=== PATIENT | female | born 1980 | race Caucasian/White ===

== ENCOUNTER 2023-12-12 07:15 | Day surgery (SDC) | payer BC ==
[~2023-12-12] VITALS: Ht 157.5 cm; Wt 72.7 kg
[~2023-12-12 07:15] MED LIST: ALPRAZOLAM0.5 MG PO; BUPROPION HCL150 MG PO; CEFAZOLIN SODIUM 2 GM/20 ML SYR IV SCH; CYCLOBENZAPRINE10 MG PO; DEXAMETHASONE SOD PHOS 4 MG/ML VIAL ONE; DULOXETINE HCL60 MG PO; FAMOTIDINE 20 MG/ 2 ML VIAL ONE; FOLIC ACID1 MG PO; GABAPENTIN100 MG PO; GABAPENTIN300 MG PO; GEODON60 MG PO; IBLOOD GLUCOSE TEST STRIP 1 EA TEST VI PRN; IBUPROFEN800 MG PO; KETOROLAC TROMETHAMINE 30 MG/ML VIAL ONE; KONDREMUL2.5 ML/5 M PO; LACTATED RINGER'S 1,000 ML IV ONE; LACTATED RINGER'S 1,000 ML IV SCH; LEVOTHYROXINE100 MCG PO; LIDOCAINE HCL 1% 5 ML SDV INJ ONE; METOCLOPRAMIDE HCL 10 MG/2 ML SDV ONE; MIDAZOLAM HCL 2 MG/2 ML VIAL ONE; MOTRIN IB200 MG PO; NORCO 5-325 TA1 EACH PO; PERCOCET 5-3251 EACH PO; PRISTIQ ER25 MG PO; SENNA8.6 MG PO; SERTRALINE HCL100 MG PO; TOPIRAMATE ER50 M1 PO; TRANEXAMIC ACID 2,000 MG in SODIUM CHLORIDE 0.9% 100 ML IV SCH; VITAMIN B-12100 MCG PO; VITAMIN B-125000 MC1 PO; WELLBUTRIN SR100 MG PO; fentaNYL citrate 100 MCG/2 ML VIAL ONE; ondansetron HCL 4 MG/2 ML VIAL ONE; propofoL 200 MG/20 ML VIAL ONE
[2023-12-12 07:36] VITALS: BP 108/51
[2023-12-12] MEDS ORDERED: PROCHLORPERAZINE EDISYLATE 10 MG/2 ML VIAL IV PRN (07:45)
[2023-12-12] MEDS ORDERED: IBLOOD GLUCOSE TEST STRIP 1 EA TEST VI PRN (07:45)
[2023-12-12] MEDS ORDERED: NALOXONE HCL 0.4 MG SYR IV PRN (07:45)
[2023-12-12] MEDS ORDERED: droPERidol 5 MG/2 ML VIAL IV PRN (07:45)
[2023-12-12] MEDS ORDERED: ondansetron HCL 4 MG/2 ML VIAL IV PRN (07:45)
[2023-12-12] MEDS ORDERED: MORPHINE SULFATE 10 MG/ML VIAL IV PRN (07:45)
[2023-12-12] MEDS ORDERED: METOCLOPRAMIDE HCL 10 MG/2 ML SDV IV PRN (07:45)
[2023-12-12] MEDS ORDERED: fentaNYL citrate 50 MCG/ML SDV IV PRN (07:45)
--- NOTE | 2023-12-12 07:52 | NUR ---
NO ONE WAITING TO CALL FOR RIDE WHEN READY.
[2023-12-12] MEDS ORDERED: SEVOFLURANE 250 ML BTL INH ONE (08:56)
[2023-12-12] MEDS ORDERED: DICLOFENAC SOD 75 MG TABEC PO SCH (09:00)
[2023-12-12] MEDS ORDERED: HYDROCODONE/ACETA 5/325 TAB PO PRN (09:00)
[2023-12-12] MEDS ORDERED: KETOROLAC TROMETHAMINE 30 MG/ML VIAL ONE (09:06)
--- NOTE | 2023-12-12 09:12 | NUR ---
up to br preop. rturned to stretcher. mild disabilities teacher in to talk with pt. has had warmer hose on per request.
[2023-12-12] MEDS ORDERED: dexmedeTOMIDine HCl 200 MCG/2 ML VIAL ONE (09:26)
[2023-12-12] MEDS ORDERED: SCOPOLAMINE 1 MG/3 DAYS PATCH 1 EACH TDSY ONE (09:33)
[2023-12-12] MEDS ORDERED: droPERidol 5 MG/2 ML VIAL ONE (09:33)
[2023-12-12] MEDS ORDERED: ATROPINE SULFATE 1 MG/ML VIAL ONE (09:33)
[2023-12-12] MEDS ORDERED: HYDROCODON-ACE1 EA10 PO (10:02)
[2023-12-12] MEDS ORDERED: DICLOFENAC SODI75 MG PO (10:03)
--- NOTE | 2023-12-12 10:03 | NUR ---
12/12/23 Baylee3 Janet Vasquez PT TO PACU SLEEPING ORAL AIRWAY IN PLACE O2 VIA MASK @6L, FOGGING NOTED IN MASK.
[2023-12-12 11:11] VITALS: BP 103/54
--- NOTE | 2023-12-12 11:16 | NUR ---
CALL [employer] AT BS. GRANDFATHER AT BS.
[2023-12-12 11:55] VITALS: BP 83/44
--- NOTE | 2023-12-12 12:05 | NUR ---
BP CONTS LOW. WILL GIVE MORE TIME. SITTING UP EATING JELLO AND DRINKING COFFEE.
--- NOTE | 2023-12-12 12:13 | NUR ---
DR SCHWARTZ CALLED CONCERNING BP. TO GIVE PT MORE TIME TO WAKE UP.
[2023-12-12 12:50] VITALS: BP 83/39
--- NOTE | 2023-12-12 13:08 | NUR ---
JODIE HENNING CALLED [facility]OU LOW BP. TO GIVE LR 1000MLS BOLUS.
[2023-12-12] MEDS ORDERED: LACTATED RINGER'S 1,000 ML IV ONE (13:15)
--- NOTE | 2023-12-12 13:32 | NUR ---
REMOVED SCOPALAMINE PATCH PER PT INSISITANCE.
[2023-12-12 13:45] VITALS: BP 91/39
--- NOTE | 2023-12-12 13:45 | NUR ---
SITTING UP FEELING A LITTLE MORE AWAKE DRINKING COFFEE [facility]
[2023-12-12 14:04] VITALS: BP 102/52
--- NOTE | 2023-12-12 14:10 | NUR ---
AMB TO BR WELL. STATES HER KNEE FEELS BETTER THAN BEFORE SURGERY. VOIDS QS.
--- NOTE | 2023-12-15 06:58 | OR ---
[facility] [address] [place], [place] [address] Signed DATE OF OPERATION: 12/12/2023 SURGEON: Oscar Vasquez MD PREOPERATIVE DIAGNOSIS: Medial meniscus tear, right knee. POSTOPERATIVE DIAGNOSIS: Medial meniscus tear, right knee. PROCEDURE PERFORMED: Right knee arthroscopy with partial medial meniscectomy. ORE SAMPLER: None. ANESTHESIA: General. BLOOD LOSS: Minimal. BRIEF HISTORY: Vivien is a 43-year-old female with a painful locking and giving out in her knee. Risks, benefits, and alternatives of surgery were discussed with her and she elected to proceed. Once consent was obtained, she was taken to the operating room and placed on the operating room table. The left leg was flexed, abducted and externally rotated on a well-padded leg mark. The right was placed in a well-padded leg mark with no tourniquet. The leg was prepped and draped in a standard sterile fashion. The port sites were injected using 0.25% Marcaine with epinephrine. Standard inferolateral and superolateral portals were made and the scope was introduced into the knee. ARTHROSCOPIC FINDINGS: The knee had a moderate synovitis throughout. 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 Medial and lateral gutters were clear. The medial compartment showed diffuse grade 3 osteoarthritis on the femoral side, grade 2 to 3 on the tibial side. There is a large radial tear posteriorly in the medial meniscus. Medial and lateral compartment was intact. ACL and PCL were intact. DESCRIPTION OF OPERATION: Electronically Signed By: OSCAR VASQUEZ MD 12/15/23 0658 PATIENT NAME: VIVIEN MCNAMARA OPERATIVE REPORT DATE OF : 78 REPORT #: [id number] PHYSICIAN: OSCAR VASQUEZ MD PCP: PETER GAFFNEY MD REPORT IS CONFIDENTIAL AND NOT TO BE RELEASED WITHOUT AUTHORIZATION [facility] [address] [place], [place] [address] Signed Standard inferomedial portal was localized using a spinal needle and established. The straight biter was used to trim the meniscus tear and remove the large flap. This was then smoothed using shaver and feathered out. The debris was evacuated and the scope was withdrawn. Portals were closed with 3-0 nylon and dressed with Adaptic, ABD, and Jah wrap. The knee was injected with 60 mg of Toradol at the end of the case. She tolerated the procedure well. All sponge, needle, and instrument counts were correct. Oscar Vasquez MD BA/FOZIAL /[id number] Copies: ~ Electronically Signed By: OSCAR VASQUEZ MD 12/15/23 0658 PATIENT NAME: VIVIEN MCNAMARA OPERATIVE REPORT DATE OF : 78 REPORT #: [id number] PHYSICIAN: OSCAR VASQUEZ MD PCP: PETER GAFFNEY MD REPORT IS CONFIDENTIAL AND NOT TO BE RELEASED WITHOUT AUTHORIZATION
== END 2023-12-12 14:00 | disposition home or self-care (01) ==
LOC: DS 07:15
PROVIDERS: ATTEND Specialist
PROC: 0SBC4ZZ Excision of Right Knee Joint, Percutaneous Endoscopic Approach (ICD-10-PCS; principal; 2023-12-12 09:25)
DX: S83.241A Other tear of medial meniscus, current injury, right knee, initial encounter (principal); M22.41 Chondromalacia patellae, right knee; Z79.899 Other long term (current) drug therapy; X58.XXXA Exposure to other specified factors, initial encounter
CPT/HCPCS: 01400; J0461; J0690; J1100; J1790; J1885; J2250; J2405; J2704; J2765; J3010; J7121